=== PATIENT | male | born 1955 | race African-American/Black ===

== ENCOUNTER 2016-09-19 21:00 | Inpatient (IN) | payer OTHER ==
--- NOTE | ~2016-09-19 | PN ---
Unit #: [id number] #: [id number] Patient: TEODORA DIAZ [id number] [facility] [address] [place] [address] [id number] MR#: [id number] NAME: TEODORA DIAZ ROOM: 74 Age: 60 Sex: M Admission Date: 09/19/2016 : 1955 Attending Physician: Teodora Salinas M.D. Admitting Physician: Teodora Salinas M.D. Primary Care Physician: Primary Care Physician No [facility] PROGRESS NOTES DATE 09/28/2016 DISCUSSION The patient is in bright spirits today and continues active participation within the milieu. He states that he will not be able to go [facility] "because I receive disability." We plan on a.m. discharge. Dictated by... Teodora Salinas M.D. CB/vilma TD: 09/29/2016 04:11 JOB #: [id number] [facility] PROGRESS NOTES Page 1 of 1 X Teodora Salinas MD X PROGRESS NOTE
--- NOTE | ~2016-09-19 | PN ---
Unit #: [id number] #: [id number] Patient: TEODORA DIAZ [id number] [facility] [address] [place] [address] [id number] I MR#: [id number] NAME: TEODORA DIAZ ROOM: 74 Age: 60 Sex: M Admission Date: 09/19/2016 : 1955 Attending Physician: Teodora Salinas M.D. Admitting Physician: Teodora Salinas M.D. Primary Care Physician: Primary Care Physician Hallie ORTIZ PROGRESS NOTES DATE 09/21/2016 DISCUSSION The patient is active within the therapeutic milieu but continues to complain of auditory hallucinations. He has tolerated the increased dose of Geodon without complaint and his detox continues uneventfully, he does; however, continue to endorse positive auditory hallucinations of a command type and he continues to endorse positive suicidal ideation. Dictated by... Teodora Salinas M.D. CB/sameera TD: 09/21/2016 13:52 JOB #: [id number] [facility] PROGRESS NOTES Page 1 of 1 X Teodora Salinas MD PROGRESS NOTE
--- NOTE | ~2016-09-19 | HP ---
Unit #: [id number] #: [id number] Patient: KAMERON DIAZ [id number] [place] [address] [id number] I MR#: [id number] NAME: KAMERON DIAZ ROOM: 74 Age: 60 Sex: M Admission Date: 09/19/2016 : 1955 Attending Physician: Kameron Salinas M.D. Admitting Physician: Kameron Salinas M.D. Primary Care Physician: Primary Care Physician No HISTORY AND PHYSICAL HISTORY OF PRESENT ILLNESS Kameron is a 60 year old admitted to [facility] because of his drug use which includes alcohol and crack cocaine. He has had other admissions to this facility. PAST MEDICAL HISTORY 1. History of illicit substance abuse. 2. Diabetes mellitus. 3. Obesity. 4. Hyperlipidemia. 5. High blood pressure. PAST SURGICAL HISTORY Nothing reported. ALLERGIES Penicillin, vitamin K. SOCIAL HISTORY Smokes one pack per day. Has a history of polysubstance abuse to include cocaine. FAMILY HISTORY Medically noncontributory. REVIEW OF SYSTEMS CONSTITUTIONAL: No fever or chills. HEENT: Denies any sore throat, ear pain or runny nose. CARDIOVASCULAR: Denies chest pain, irregular heart rhythm or palpitations. CHEST: Denies shortness of breath or cough. No hemoptysis. GASTROINTESTINAL: Denies nausea, vomiting, diarrhea or chronic constipation. ENDOCRINE: Denies history of increased thirst or urination. No recent significant weight loss or gain. GENITOURINARY: Denies dysuria, frequency, or hematuria. SKIN: Denies any rashes. HEMATOLOGIC: Denies history of increased bleeding or bruising. MUSCULOSKELETAL: Denies any hot, swollen joints. No generalized muscle pain. NEUROLOGIC: Denies problems with vision or speech. No frequent, severe headaches. No numbness, tingling or weakness in any extremities. Denies loss of bladder or bowel control. Unit #: [id number] #: [id number] Patient: KAMERON DIAZ CURRENT MEDICATIONS 1. Lipitor 20 mg q day 2. Remeron 30 mg q.h.s. 3. Geodon 40 mg q.a.m., 80 mg q.h.s. 4. HCTZ 25 mg q day 5. Vitamin B12 1000 micrograms q day 6. Zestril 20 mg q day 7. Nicotine patch 14 mg q day 8. Glucophage XR 1000 mg b.i.d. 9. NovoLog per sliding scale 10. Milk of Magnesia p.r.n. 11. Maalox p.r.n. 12. Tylenol p.r.n. PHYSICAL EXAMINATION GENERAL: Alert, well-nourished, in no apparent distress. VITAL SIGNS: Blood pressure 118/66, heart rate 80, respirations 16, temperature 98.6. WEIGHT: 266 pounds. HEIGHT: 6'2". SKIN: Warm and dry without rash or lesion. HEENT: Normocephalic. TMs not viewed. Oral and nasal passages clear. Conjunctivae clear. Pupils equal, round and reactive to light and accommodation. Extraocular movements intact. NECK: Supple without lymphadenopathy or thyromegaly. HEART: Regular rate and rhythm without murmur. LUNGS: Clear. ABDOMEN: Soft, nontender. : Not done. EXTREMITIES: No evidence of cyanosis, clubbing or edema. Moves all extremities without focal deficit. NEUROLOGICAL: Grossly within normal limits. Cranial Nerves: II: Visual quiñonez are intact. III, IV AND : Extraocular movements are intact. Pupils are equal, round and reactive to light. V: Facial sensation is grossly normal. VII: Facial movements and expression are normal. VIII: Auditory acuity grossly intact. IX, X: Uvula is midline. Phonation is normal. XI: Patient shrugs shoulders and turns head normally. XII: Tongue protrudes in the midline. Sensory and Motor Function: Sensory and motor sensation is grossly normal. Motor: moves all extremities well. Coordination: Gait is normal. Deep Tendon Reflexes: Intact. IMPRESSION 1. Psychiatric admission. 2. Diabetes mellitus. Blood sugars have been running high. We will continue Accu-Cheks and our routine sliding scale. The patient does admit that he has been noncompliant with his Glucophage. MEDICAL PROGNOSIS Good. MEDICAL CONDITION Stable. Unit #: [id number] #: [id number] Patient: KAMERON DIAZ Dictated by... Yocasta Tiwari P.A.-C. for Moises Veliz/vilma TD: 09/21/2016 01:38 JOB #: [id number] HISTORY AND PHYSICAL Page 1 of 1 X Yocasta Tiwari HISTORY AND PHYSICAL
--- NOTE | ~2016-09-19 | PN ---
Unit #: [id number] #: [id number] Patient: TEODORA DIAZ [id number] [facility] [address] [place] [address] [id number] I MR#: [id number] NAME: TEODORA DIAZ ROOM: 74 Age: 60 Sex: M Admission Date: 09/19/2016 : 1955 Attending Physician: Teodora Salinas M.D. Admitting Physician: Teodora Salinas M.D. Primary Care Physician: Primary Care Physician Hallie HAYWARDCE PROGRESS NOTES DATE 09/27/2016 DISCUSSION [facility]. He is sleeping well and reports significant reduction in psychotic symptoms. His progress is encouraging, and discharge should take place within the next couple of days. Dictated by... Teodora Salinas M.D. CB/bztanesha TD: 09/27/2016 14:34 JOB #: [id number] [facility] PROGRESS NOTES Page 1 of 1 X Teodora Salinas MD X PROGRESS NOTE
--- NOTE | ~2016-09-19 | CO ---
Unit #: [id number] #: [id number] Patient: KAMERON IDAZ [id number] [place] [address] [id number] I MR#: [id number] NAME: KAMERON DIAZ ROOM: 74 Age: 60 Sex: M Admission Date: 09/19/2016 : 1955 Attending Physician: Kameron Salinas M.D. Primary Care Physician: Primary Care Physician No Consultation Date: 09/20/2016 CONSULTATION REPORT YURI Melo is a 60-year-old with diabetes mellitus, type 2, insulin-dependent. We have been asked to review his medications. Home medications include Glucophage XR 1000 mg b.i.d. and Humulin 70/30. We will continue the Glucophage and discontinue the Humulin 70/30 and start Levemir 26 units q.h.s. Monitor Accu-Cheks a.c. and h.s. and provide sliding scale with meals only. We will follow. Dictated by... Yocasta Tiwari P.A.-C. for Moises Veliz/dandre TD: 09/22/2016 02:38 JOB #: [id number] CONSULTATION REPORT Page 1 of 1 X Yocasta Tiwari CONSULTATION REPORT
--- NOTE | ~2016-09-19 | PN ---
Unit #: [id number] #: [id number] Patient: TEODORA DIAZ [id number] [facility] [address] [place] [address] [id number] I MR#: [id number] NAME: TEODORA DIAZ ROOM: 74 Age: 60 Sex: M Admission Date: 09/19/2016 : 1955 Attending Physician: Teodora Salinas M.D. Admitting Physician: Teodora Salinas M.D. Primary Care Physician: Primary Care Physician No [facility] PROGRESS NOTES DATE 09/24/2016 DISCUSSION The patient is in bright spirits today and is reporting significant reduction in auditory hallucinations. He is tolerating medications and his detox is essentially complete. Should he sustain progress, discharge will likely take place within the next few days. Dictated by... Teodora Salinas M.D. CB/traci TD: 09/24/2016 21:20 JOB #: [id number] [facility] PROGRESS NOTES Page 1 of 1 X Teodora Salinas MD X PROGRESS NOTE
--- NOTE | ~2016-09-19 | PN ---
Unit #: [id number] #: [id number] Patient: KAMERON DIAZ [id number] [facility] [address] [place] [address] [id number] I MR#: [id number] NAME: KAMERON DIAZ ROOM: [facility] Age: 60 Sex: M Admission Date: 09/19/2016 : 1955 Attending Physician: Kameron Salinas M.D. Admitting Physician: Kameron Salinas M.D. Primary Care Physician: Primary Care Physician Hallie ORTIZ PROGRESS NOTES DATE 09/22/2016 DISCUSSION The patient continues to complain of poor sleep but reports that his auditory hallucinations are somewhat reduced with an increased dose of Geodon. He is actively participating in the therapeutic milieu and is working with the social services director regarding post discharge disposition i.e. group home house or other chemical dependence treatment. Dictated by... Kameron Salinas M.D. CB/traci TD: 09/22/2016 16:46 JOB #: [id number] [facility] PROGRESS NOTES Page 1 of 1 X Kameron Salinas MD PROGRESS NOTE
--- NOTE | ~2016-09-19 | PN ---
Unit #: [id number] #: [id number] Patient: TEODORA DIAZ [id number] [facility] [address] [place] [address] [id number] I MR#: [id number] NAME: TEODORA DIAZ ROOM: 74 Age: 60 Sex: M Admission Date: 09/19/2016 : 1955 Attending Physician: Teodora Salinas M.D. Admitting Physician: Teodora Salinas M.D. Primary Care Physician: Primary Care Physician Hallie ORTIZ PROGRESS NOTES DATE 09/25/2016 DISCUSSION The patient continues to complain of depressed mood and poor sleep. I will increase his Remeron from 30 to 45 mg at h.s. continuing other prescribed medications. His detox protocol has been discontinued as of today. Dictated by... Teodora Salinas M.D. CB/traci TD: 09/25/2016 14:09 JOB #: [id number] [facility] PROGRESS NOTES Page 1 of 1 X Teodora Salinas MD X PROGRESS NOTE
--- NOTE | ~2016-09-19 | PN ---
Unit #: [id number] #: [id number] Patient: TEODORA DIAZ [id number] [facility] [address] [place] [address] [id number] I MR#: [id number] NAME: TEODORA DIAZ ROOM: 74 Age: 60 Sex: M Admission Date: 09/19/2016 : 1955 Attending Physician: Teodora Salinas M.D. Admitting Physician: Teodora Salinas M.D. Primary Care Physician: Primary Care Physician No [facility] PROGRESS NOTES DATE 09/23/2016 DISCUSSION The patient seems to be in brighter spirits and is reporting reduction in auditory hallucinations with increased dose of Geodon. His detox continues uneventfully and he remains active within the therapeutic milieu. Dictated by... Teodora Salinas M.D. CB/traci TD: 09/23/2016 20:32 JOB #: [id number] [facility] PROGRESS NOTES Page 1 of 1 X Teodora Salinas MD X PROGRESS NOTE
--- NOTE | ~2016-09-19 | PA ---
Unit #: [id number] #: [id number] Patient: TEODORA DIAZ [id number] [place] [address] [id number] I MR#: [id number] NAME: TEODORA DIAZ ROOM: [facility] Age: 60 Sex: M Admission Date: 09/19/2016 : 1955 Date of Assessment: 09/20/2016 Attending Physician: Teodora Salinas M.D. Admitting Physician: Teodora Salinas M.D. Primary Care Physician: Primary Care Physician No PSYCHIATRIC ASSESSMENT IDENTIFYING INFORMATION The patient is a 60-year-old male, admitted to the [facility] unit with history of alcohol use and auditory hallucinations. INFORMANT(S) Patient reliability is good. CHIEF COMPLAINT None given. HISTORY OF PRESENT ILLNESS The patient is a 60-year-old male, last lodged at this facility in 2014. He has history of crack cocaine and alcohol abuse, and reports that he had relapsed recently after beginning to hear voices. The patient states that he has been compliant with prescribed medications including Geodon. The patient reports no other stressors at this time, he is; however, continuing to endorse positive auditory hallucinations of command type telling him to walk into traffic. The patient states that he has been noncompliant with his prescribed medications and states that he had used $3900.00 worth of crack cocaine since relapsing two weeks ago. PAST PSYCHIATRIC HISTORY The patient has been hospitalized at this facility dating to 2006 when he was cared for by Dr. Kenny. He was treated by this physician in 2014 and started on Geodon at that time. PAST MEDICAL HISTORY The patient suffers from diabetes mellitus, and dyslipidemia, hypertension. MEDICATIONS 1. NovoLog 2. Vitamin B 3. Lisinopril 4. Atorvastatin 5. Metformin 6. Remeron 7. Geodon 8. Levemir ALLERGIES Penicillin, vitamin K Unit #: [id number] #: [id number] Patient: TEODORA DIAZ FAMILY HISTORY Noncontributory. SOCIAL HISTORY The patient lives alone. He reports alcohol and cocaine use as noted previously and is a smoker. MENTAL STATUS EXAM At this time reveals the patient to be an obese male, appearing his stated age. He is in no apparent physical distress at the time of the examination. He is awake, alert, and oriented in all spheres. His mood is dysphoric. His affect constricted. Speech is generally relevant and coherent. There are no gross deficits to memory or cognition noted. Intelligence is judged to be in the average range based on fund of knowledge. The patient is cooperative throughout the interview. He is currently endorsing positive suicidal ideation. He denies homicidal ideation. He reports positive auditory hallucinations of a command type as described previously. His judgment and insight appear to be significantly impaired. No overt signs of substance withdraw at this point in evidence. ASSETS Motivation for change. LIABILITIES Poor compliance with treatment. DIAGNOSTIC IMPRESSION Mauldin I: Schizoaffective disorder. Alcohol use disorder. Cocaine use disorder. Mauldin II: Mauldin III: Diabetes mellitus. Hypertension. GERD. Dyslipidemia. TREATMENT PLAN The patient remains hospitalized for safety and stabilization. I will increase the patient's Geodon from 80 mg nightly to 40 mg q.a.m. and 80 mg nightly, and will continue other prescribed medications, routine detoxification protocol for alcohol has been initiated and suicide precautions are in place. ESTIMATED LENGTH OF STAY Njvj-[id number]-[id number] days. Dictated by... Teodora Salinas M.D. JASMINE/sameera TD: 09/20/2016 12:13 JOB #: [id number] Unit #: [id number] #: [id number] Patient: TEODORA DIAZ PSYCHIATRIC ASSESSMENT Page 1 of 1 X Teodora Salinas MD PSYCHIATRIC ASSESSMENT
--- NOTE | ~2016-09-19 | DS ---
Unit #: [id number] #: [id number] Patient: TEODORA DIAZ [id number] [place] [address] [id number] MR#: [id number] NAME: TEODORA DIAZ ROOM: [facility] Age: 60 Sex: M Admission Date: 09/19/2016 : 1955 Discharge Date: 09/29/2016 Attending Physician: Teodora Salinas M.D. Primary Care Physician: Primary Care Physician No DISCHARGE SUMMARY REASON FOR ADMISSION The patient is a 60-year-old male with history of schizoaffective disorder and alcohol use, admitted with recurrent alcohol use and auditory hallucinations. HOSPITAL COURSE The patient was admitted to the [facility] Unit and placed on routine detoxification protocol for alcohol. Geodon was increased to 40 mg q.a.m. and 80 mg at bedtime. The patient's Remeron was continued. The patient participated actively within the therapeutic milieu and showed slow, but steady improvement with reduction in auditory hallucinations with increase of Geodon dose. His detox was an uneventful one. By 09/28, the patient requested discharge and by 09/29, the patient was in brighter spirits and denied suicidal, homicidal, or psychotic symptoms. Discharge was ordered. FINAL DIAGNOSES Schizoaffective disorder, alcohol use disorder, obesity, hypertension, gastroesophageal reflux disease, and diabetes mellitus. DISPOSITION ON DISCHARGE The patient is discharged on the following medications; Sliding scale for diabetic management. Geodon 40 mg q.a.m. and 80 mg at bedtime for psychosis. Lipitor 20 mg at bedtime for dyslipidemia. Zestril 20 mg once daily for hypertension. Vitamin B12 1000 mg daily for vitamin supplementation. Oretic 25 mg once daily for hypertension. Glucophage XR 1000 mg b.i.d. before meals for diabetic management. Levemir 26 units at bedtime for diabetic management. Remeron 45 mg at bedtime for depression. No dietary or physical restrictions were placed on the patient at the time of discharge. FOLLOWUP He will follow up through the auspices of community mental health resources. PROGNOSIS Considered good. Dictated by... Teodora Salinas M.D. JASMINE/dandre Unit #: [id number] #: [id number] Patient: TEODORA DIAZ TD: 09/30/2016 11:06 JOB #: [id number] DISCHARGE SUMMARY Page 1 of 1 X Teodora Salinas MD DISCHARGE SUMMARY
--- NOTE | ~2016-09-19 | PN ---
Unit #: [id number] #: [id number] Patient: TEODORA DIAZ [id number] [facility] [address] [place] [address] [id number] I MR#: [id number] NAME: TEODORA DIAZ ROOM: 74 Age: 60 Sex: M Admission Date: 09/19/2016 : 1955 Attending Physician: Teodora Salinas M.D. Admitting Physician: Teodora Salinas M.D. Primary Care Physician: Primary Care Physician No [facility] PROGRESS NOTES DATE 09/26/2016 DISCUSSION The patient is in brighter spirits today and states that he slept well last evening. He exhibits little in the way or signs or symptom of withdrawal. Should he sustain progress discharge should take place within the next couple of days. Dictated by... Teodora Salinas M.D. CB/vilma TD: 09/27/2016 02:48 JOB #: [id number] [facility] PROGRESS NOTES Page 1 of 1 X Teodora Salinas MD X PROGRESS NOTE
[2016-09-20 09:45] LABS: URINE APPEARANCE TURBID; URINE BILIRUBIN NEG (NEG); URINE BLOOD 2+ (NEG); URINE COLOR YELLOW; URINE GLUCOSE >1000 MG/DL (NEG); URINE KETONE NEG (NEG); URINE LEUKOCYTE ESTERASE NEG (NEG); URINE NITRATE NEG (NEG); URINE PROTEIN 1+ (NEG); URINE SPECIFIC GRAVITY 1.032 (1.003-1.035); URINE UROBILINOGEN 0.2 MG/DL (NEG)
[2016-09-20 09:49] LABS: BASOPHIL% 0.5 % (0-2.5); EOSINOPHIL# 0.1 X10e3 (0-0.7); EOSINOPHIL% 1.4 % (0.0-7.0); HEMATOCRIT 37.6 % (38.0-50.0); HEMOGLOBIN 11.8 gm/dL (13.0-16.0); LYMPHOCYTE# 2.5 X10e3 (1.0-3.5); LYMPHOCYTE% 30.5 % (17.0-45.0); MEAN CELL VOLUME 80.8 FL (83-96); MEAN CORPUSCULAR HEMOGLOBIN 25.3 PG (28-34); MEAN CORPUSCULAR HGB CONC 31.3 g/dL (30-36); MEAN PLATELET VOLUME 10.6 FL (6.5-11.5); MONOCYTE# 0.7 X10e3 (0-1.0); NEUTROPHIL# 4.8 X10e3 (1.5-7.1); NEUTROPHIL% 58.6 % (40-75); PLATELET COUNT 161 X10e3 (140-420); RED BLOOD COUNT 4.66 X10e (3.90-5.60); RED CELL DISTRIBUTION WIDTH 16.1 % (11.0-15.5); WHITE BLOOD COUNT 8.2 X10e3 (4.0-10.5)
[2016-09-20 09:51] LABS: U HYALINE CASTS AUWI 0-2 /[LPF]; URBCS1 AUWI 0-2 /[HPF] (0-2); URINE BACTERIA AUWI NEG (NEGATIVE); URINE SQUAMOUS EPITHELIAL CELL NONE SEEN /[HPF]; UWBCS1 AUWI 0-2 (0-5)
[2016-09-20 10:05] LABS: DIFF IND NO
[2016-09-20 10:18] LABS: ALBUMIN SERUM 3.7 g/dL (3.5-5.0); BILIRUBIN,TOTAL 0.3 mg/dL (0.2-2.0); BUN/CREATININE RATIO 17.69; CALCIUM SERUM 8.8 mg/dL (8.4-10.2); CREATININE SERUM 1.3 mg/dL (0.6-1.4); GLOM FILT RATE Estimated 69.7 mL/min (>60); POTASSIUM 3.9 mmol/L (3.5-5.1); PROTEIN TOTAL SERUM 6.5 g/dL (6.0-8.3)
[2016-09-20 10:28] LABS: AMPHETAMINE NEG (NEG); BARBITURATES NEG (NEG); BENZODIAZEPINES NEG (NEG); COCAINE POS (NEG); MARIJUANA NEG (NEG); OPIATES NEG (NEG); TRICYCLIC ANTIDEPRESSANTS NEG (NEG); U METHADONE NEG (NEG)
== END 2016-09-29 16:05 | DRG 885 ==
LOC: P1E 23:07 → POF 23:07 → P1E 23:15
PROVIDERS: Specialist
PROC: HZ2ZZZZ Detoxification Services for Substance Abuse Treatment (ICD-10-PCS; principal; 2016-09-19)
DX: F25.9 Schizoaffective disorder, unspecified (principal); E11.9 Type 2 diabetes mellitus without complications; R45.851 Suicidal ideations; F10.10 Alcohol abuse, uncomplicated; F14.10 Cocaine abuse, uncomplicated; I10 Essential (primary) hypertension; K21.9 Gastro-esophageal reflux disease without esophagitis; E78.5 Hyperlipidemia, unspecified; F17.210 Nicotine dependence, cigarettes, uncomplicated; Z88.0 Allergy status to penicillin; Z79.84 Long term (current) use of oral hypoglycemic drugs
CPT/HCPCS: 80053; 80307; 81003; 82947; 85025